=== PATIENT | male | born 1975 | race Hispanic/Latino ===

== ENCOUNTER 2019-04-04 22:07 | Inpatient (IN) | payer OTHER ==
[~2019-04-04] VITALS: Ht 167.6 cm; Wt 116.5 kg
[~2019-04-04 22:07] MED LIST: ETOMIDATE 2 MG/ML 10 ML VIAL IVP ONE; ROCURONIUM BROMIDE 10MG/1ML 5ML VL IV ONE; SUCCINYLCHOLINE CHLORIDE 20 MG/ML 10 ML VIAL IVP ONE
[2019-04-04] MEDS ORDERED: SODIUM CHLORIDE 0.9% 1000ML 1,000 ML IV ONE ×3 (22:52→23:32)
[2019-04-04] MEDS ORDERED: ONDANSETRON HCL 4 MG/2 ML VIAL ONE (22:52)
[2019-04-04 22:59] LABS: BASOPHILS % (AUTO) 0.3 % (0.0-5.0); EOSINOPHILS % (AUTO) 0.1 % (0.0-8.0); HEMATOCRIT 42.3 % (42-54); LYMPHOCYTES % (AUTO) 2.9 % (21.0-51.0); MEAN CORPUSCULAR HEMOGLOBIN 35.3 pg (27.0-33.0); MEAN CORPUSCULAR HGB CONC 33.1 g/dL (32.0-36.0); MEAN CORPUSCULAR VOLUME 106.5 fL (79-99); MONOCYTES % (AUTO) 7.7 % (3.0-13.0); NEUTROPHILS % (AUTO) 85.6 % (40.0-77.0); NUCLEATED RED BLOOD CELLS 0.1 % (0.0-0.19); PLATELET COUNT (AUTO) 104 K/uL (130-400); RED BLOOD CELL COUNT(AUTO) 3.97 MIL/uL (4.50-6.20); RED CELL DISTRIBUTION WIDTH 15.5 % (11.0-15.5); WHITE BLOOD COUNT (AUTO) 22.1 K/uL (4.8-10.8)
[2019-04-04] MEDS ORDERED: ACETAMINOPHEN EXTRA STRENGTH 500 MG TABLET ONE (22:59)
[2019-04-04 23:11] LABS: INR 2.07 (0.85-1.15); PARTIAL THROMBOPLASTIN TIME 39.2 SEC (26.3-35.5); PROTHROMBIN TIME 21.1 SEC (9.6-11.6)
[2019-04-04 23:12] LABS: CREATININE 1.1 mg/dL (0.5-1.5); POTASSIUM 3.7 mmol/L (3.5-5.1)
[2019-04-04 23:17] LABS: ALBUMIN 1.7 g/dL (3.5-5.0); BILIRUBIN,TOTAL 6.6 mg/dL (0.2-1.0); TOTAL PROTEIN, SERUM 8.5 g/dL (6.0-8.3)
[2019-04-04] MEDS ORDERED: THIAMINE HCL 100 MG/ML 2ML VIAL ONE (23:52)
[2019-04-04] MEDS ORDERED: CEFTRIAXONE SODIUM 1 GM ONE (23:52)
[2019-04-04] MEDS ORDERED: AZITHROMYCIN 250 MG TABLET PO ONE (23:52)
[2019-04-04] MEDS ORDERED: IPRATROPIUM/ALBUTEROL SULFATE 3 ML SOLUTION IH ONE (23:53)
[2019-04-04] MEDS ORDERED: SODIUM CHLORIDE 0.9% 100 ML IV ONE (23:53)
[2019-04-04] MEDS ORDERED: PHYTONADIONE 10 MG/1 ML AMP ONE (23:53)
[2019-04-05 01:58] LABS: APPEARANCE,URINE Cloudy (CLEAR); BILIRUBIN,URINE Large (NEGATIVE); GLUCOSE, URINE (UA) TRACE mg/dL (NEGATIVE); KETONES,URINE Negative (NEGATIVE); LEUKOCYTE ESTERASE ,URINE Small (NEGATIVE); NITRATE,URINE Positive (NEGATIVE); OCCULT BLOOD,URINE Negative (NEGATIVE); PROTEIN,URINE POS 2+ mg/dL (NEGATIVE)
[2019-04-05 02:06] LABS: AMPHET/METH SCREEN,URINE NEGATIVE (NEGATIVE); BARBITURATE SCREEN, URINE NEGATIVE (NEGATIVE); BENZODIAZEPINES SCREEN,URINE POSITIVE (NEGATIVE); CANNABINOID SCREEN,URINE POSITIVE (NEGATIVE); COCAINE SCREEN,URINE POSITIVE (NEGATIVE); OPIATE SCREEN,URINE NEGATIVE (NEGATIVE); PHENCYCLIDINE SCREEN,URINE NEGATIVE (NEGATIVE)
[2019-04-05 02:14] LABS: COLOR,URINE AMBER (YELLOW)
[2019-04-05 02:17] LABS: BACTERIA,URINE None Seen /HPF (None Seen); MUCUS,URINE Rare LPF (None Seen); RBC,URINE 0-1 /HPF (0-1); SQUAMOUS EPITHELIAL CELL,UR Few /HPF (0-2); WBC,URINE 0-1 /HPF (0-1)
[2019-04-05 02:19] LABS: COARSE GRANULAR CASTS,URINE 0-2 /LPF (None Seen)
[2019-04-05 02:58] LABS: MAGNESIUM 1.9 mg/dL (1.80-2.40)
[2019-04-05] MEDS ORDERED: NITROGLYCERIN 0.4 MG SL TAB SL PRN (03:30)
[2019-04-05] MEDS ORDERED: ACETAMINOPHEN 325 MG TAB PO PRN (03:30)
[2019-04-05] MEDS: ZOSYN 3.375GM+NS 50ML 50 ML IV SCH ×2 (05:00→13:00)
[2019-04-05] MEDS ORDERED: SODIUM CHLORIDE 0.9% 1000ML 1,000 ML IV ONE (05:03)
[2019-04-05] MEDS ORDERED: ZOSYN 3.375GM+NS 50ML 50 ML IV ONE ×3 (05:03→21:04)
[2019-04-05 06:10] LABS: HEMATOCRIT 38.7 % (42-54); MEAN CORPUSCULAR HEMOGLOBIN 35.7 pg (27.0-33.0); MEAN CORPUSCULAR HGB CONC 33.6 g/dL (32.0-36.0); MEAN CORPUSCULAR VOLUME 106.3 fL (79-99); NUCLEATED RED BLOOD CELLS 0.1 % (0.0-0.19); PLATELET COUNT (AUTO) 87 K/uL (130-400); RED BLOOD CELL COUNT(AUTO) 3.64 MIL/uL (4.50-6.20); RED CELL DISTRIBUTION WIDTH 15.8 % (11.0-15.5); WHITE BLOOD COUNT (AUTO) 20.9 K/uL (4.8-10.8)
[2019-04-05 06:36] LABS: ALBUMIN 1.5 g/dL (3.5-5.0); CREATININE 0.9 mg/dL (0.5-1.5); MAGNESIUM 1.4 mg/dL (1.80-2.40); POTASSIUM 4.1 mmol/L (3.5-5.1); TOTAL PROTEIN, SERUM 7.5 g/dL (6.0-8.3)
[2019-04-05] MEDS ORDERED: IPRATROPIUM/ALBUTEROL SULFATE 3 ML SOLUTION IH ONE ×3 (06:42→13:35)
[2019-04-05 06:43] LABS: INR 2.17 (0.85-1.15); PARTIAL THROMBOPLASTIN TIME 42.5 SEC (26.3-35.5); PROTHROMBIN TIME 22.1 SEC (9.6-11.6)
[2019-04-05] MEDS: IPRATROPIUM/ALBUTEROL SULFATE 3 ML SOLUTION IH SCH ×5 (06:47→22:28)
[2019-04-05 08:10] LABS: BAND NEUTROPHILS % (MANUAL) 1 % (0-2); LYMPHOCYTES % (MANUAL) 1 % (22-44); MAN.DIFF COMMENT-IMPRESSION MANUAL DIFFERENTIAL; MONOCYTES % (MANUAL) 5 % (2-9); SEGMENTED NEUTROPHILS % 93 % (40-70)
[2019-04-05 08:11] LABS: PLATELET MORPHOLOGY COMMENT DECREASED
[2019-04-05] MEDS: FAMOTIDINE 20MG TAB 20 MG TAB PO SCH (09:00)
[2019-04-05] MEDS ORDERED: MAGNESIUM 2GM PREMIX 50ML 50 ML IV SCH (09:15)
[2019-04-05] MEDS ORDERED: CALCIUM GLUCONATE 1 GM in SODIUM CHLORIDE 0.9% 100 ML IV SCH (09:15)
[2019-04-05] MEDS ORDERED: ONDANSETRON HCL 4 MG/2 ML VIAL ONE ×2 (10:00→22:13)
[2019-04-05] MEDS ORDERED: ACETAMINOPHEN 325 MG TAB ONE ×3 (10:19→21:04)
[2019-04-05] MEDS ORDERED: MAGNESIUM 2GM PREMIX 50ML 50 ML IV ONE (10:40)
[2019-04-05] MEDS ORDERED: CALCIUM GLUCONATE 1 GM/10 ML VIAL IV ONE ×2 (10:41→10:45)
[2019-04-05] MEDS ORDERED: SODIUM CHLORIDE 0.9% 100 ML IV ONE (10:41)
--- NOTE | 2019-04-05 12:22 | NUR ---
CHART REVIEWED, A[facility] GENERATED
[2019-04-05 12:30] VITALS: BP 152/84
[2019-04-05] MEDS ORDERED: METOPROLOL TARTRATE 25 MG TAB ONE (16:32)
--- NOTE | 2019-04-05 17:00 | NUR ---
INITIAL MET W PT AND VITO ABURTO , WHOM PATIENT LIVES WITH AND WILL PROVIDE TRANSPORT PT IS INDP,, NO DME, NO HH, NO PROV, CURRENTLY UNEMPLOYED, NO INSURANCE, [employer] PENDING. DCP HOME NOTE:Ronald O2 IN ER, NO O2 AT HOME, ADMIT FOR SOBOE, CHAPARROUEMONIA Addendum: 04/06/19 at 1305 by PENELOPE SAMSON RN CM Amended: Links added.
[2019-04-05] MEDS ORDERED: GUAIFENESIN-DM 200/20 MG 10 ML ONE (22:13)
[2019-04-06] MEDS: IPRATROPIUM/ALBUTEROL SULFATE 3 ML SOLUTION IH SCH ×6 (01:56→21:39)
[2019-04-06] MEDS ORDERED: METOPROLOL TARTRATE 25 MG TAB ONE (03:04)
[2019-04-06] MEDS ORDERED: AZITHROMYCIN 500MG+NS 250ML 250 ML IV ONE (03:07)
[2019-04-06] MEDS: AZITHROMYCIN 500MG+NS 250ML 250 ML IV SCH (03:30)
[2019-04-06] MEDS ORDERED: GUAIFENESIN-DM 200/20 MG 10 ML ONE (04:01)
[2019-04-06] MEDS ORDERED: ONDANSETRON HCL 4 MG/2 ML VIAL ONE (04:01)
[2019-04-06 06:10] LABS: HEPATITIS A ANTIBODY IGM Negative (Negative); HEPATITIS B CORE IGM Negative (Negative); HEPATITIS Bs ANTIGEN SCREEN P Negative (Negative)
[2019-04-06] MEDS ORDERED: IPRATROPIUM/ALBUTEROL SULFATE 3 ML SOLUTION IH ONE ×2 (06:29→09:53)
[2019-04-06] MEDS ORDERED: ZOSYN 3.375GM+NS 50ML 50 ML IV ONE (06:58)
[2019-04-06 09:01] LABS: ABG BASE EXCESS -3.6 mmol/L (-2.0-3.0); ABG HCO3 20.6 mmol/L (21.0-28.0); ABG PCO2 35 mmHg (35-48)
[2019-04-06] MEDS ORDERED: MAGNESIUM 2GM PREMIX 50ML 50 ML IV ONE (11:53)
[2019-04-06 13:00] VITALS: BP 147/82
--- NOTE | 2019-04-06 13:00 | NUR ---
ER PT. ADMITTED TO ROOM 318 WITH DX. PNEUMONIA, UTI, N/V. PER PT. AND ER NURSE HAS BEEN IN ER FOR 3 DAYS. NO C/O AT THIS TIME. PENDING A HIDA SCAN AND IS NPO. 20G SALINE LOCK IN PLACE TO LT. HAND. ON 02 AT 3 LITERS AND SATS AT 90%.
[2019-04-06 16:00] VITALS: BP 144/72
--- NOTE | 2019-04-06 16:00 | NUR ---
WAS ALICIA. FOR HIDA SCAN BUT DID NOT TOLERATE IT, RETURNED TO ROOM
[2019-04-06 20:16] VITALS: BP 143/75
[2019-04-06] MEDS: FAMOTIDINE 20MG TAB 20 MG TAB PO SCH ×2 (21:00→22:01)
[2019-04-06] MEDS ORDERED: LORAZEPAM 2 MG/ML 1 ML VIAL IVP PRN ×2 (21:45)
[2019-04-06] MEDS ORDERED: PHARMACY COMMUNICATION MISC PRN (21:45)
[2019-04-06] MEDS ORDERED: GUAIFENESIN/DEXTROMETHORPHAN 1 EACH TAB.SR.12H PO ONE (21:49)
[2019-04-06] MEDS: ZOSYN 3.375GM+NS 50ML 50 ML IV SCH (22:01)
[2019-04-06] MEDS: SODIUM CHLORIDE 0.9% 1000ML 1,000 ML IV SCH (22:02)
[2019-04-07] VITALS (7 sets, daily range): BP systolic 105–156; BP diastolic 61–87
[2019-04-07] MEDS: IPRATROPIUM/ALBUTEROL SULFATE 3 ML SOLUTION IH SCH ×6 (01:39→21:29)
[2019-04-07] MEDS: AZITHROMYCIN 500MG+NS 250ML 250 ML IV SCH ×2 (02:25→03:30)
[2019-04-07] MEDS: CHLORDIAZEPOXIDE HCL 25 MG CAP PO PRN ×3 (02:25→23:35)
[2019-04-07 02:47] LABS: ABG BASE EXCESS 0.1 mmol/L (-2.0-3.0); ABG HCO3 26.9 mmol/L (21.0-28.0); ABG OXYGEN SATURATION 88.8 % (95.0-99.0); ABG PCO2 52 mmHg (35-48)
[2019-04-07] MEDS: ZOSYN 3.375GM+NS 50ML 50 ML IV SCH ×4 (04:29→21:01)
[2019-04-07] MEDS: ONDANSETRON HCL 4 MG/2 ML VIAL IV PRN (04:29)
[2019-04-07] MEDS: SODIUM CHLORIDE 0.9% 1000ML 1,000 ML IV SCH (05:24)
[2019-04-07 06:03] LABS: EOSINOPHILS % (AUTO) 0.4 % (0.0-8.0); HEMATOCRIT 39.3 % (42-54); LYMPHOCYTES % (AUTO) 5.5 % (21.0-51.0); MEAN CORPUSCULAR HEMOGLOBIN 36.3 pg (27.0-33.0); MEAN CORPUSCULAR HGB CONC 33.6 g/dL (32.0-36.0); MONOCYTES % (AUTO) 9.9 % (3.0-13.0); NUCLEATED RED BLOOD CELLS 0.7 % (0.0-0.19); PLATELET COUNT (AUTO) 156 K/uL (130-400); RED BLOOD CELL COUNT(AUTO) 3.64 MIL/uL (4.50-6.20); RED CELL DISTRIBUTION WIDTH 15.6 % (11.0-15.5); WHITE BLOOD COUNT (AUTO) 21.5 K/uL (4.8-10.8)
[2019-04-07 06:15] LABS: INR 1.8 (0.85-1.15); PARTIAL THROMBOPLASTIN TIME 35.6 SEC (26.3-35.5); PROTHROMBIN TIME 18.5 SEC (9.6-11.6)
[2019-04-07 06:27] LABS: CREATININE 0.9 mg/dL (0.5-1.5); POTASSIUM 4.4 mmol/L (3.5-5.1)
[2019-04-07 06:34] LABS: ALBUMIN 1.4 g/dL (3.5-5.0); BILIRUBIN,TOTAL 8.5 mg/dL (0.2-1.0); TOTAL PROTEIN, SERUM 7.4 g/dL (6.0-8.3)
[2019-04-07] MEDS: GUAIFENESIN 600 MG TABLET.ER PO SCH ×2 (08:37→21:01)
[2019-04-07] MEDS: THIAMINE HCL 100 MG/ML 2ML VIAL IM SCH (08:38)
[2019-04-07] MEDS: FOLIC ACID 1 MG TABLET PO SCH (08:38)
[2019-04-07] MEDS: MULTIVITAMIN TABLET PO SCH (08:38)
--- NOTE | 2019-04-07 08:39 | NUR ---
PATIENT UPDATE Pt anxious the whole night, had problems trying to keep the ventimask and then eventually bipap mask on, yanks the mask off just whenever he feels like it with O2 sat going down to as low as 79%. Known alcoholic and smoker, noted mod amt of tremors hillary in the talha upper extremity ,possible withdrawal symptoms. Sheila Evans PARADI OPERATOR called several times during the night, placed on CIWA protocol, ciwa score of 21, unable to give ativan considering pt's resp status, hyperventilating in the 30's short shallow resp with o2 sat bet 89 to 90% with the ventimask at 50%. Had problems providing the right amount of oxygen because pt tends to take it off and his O2 sat goes down quickly to as low as 65%. Not coughing a lot of phlegm, expectorant given in addition to the duonebs q 4 hrs. Went ahead and gave the pt 50mg of Librium which somehow calmed him down and help him keep the bipap mask on for 3 hrs. ABG done and CO2 was 53 which prompted the need for the bipap mask. Unable to follow the settings prescribed by the PARADI OPERATOR, pt was complaining saying it's too much so it was adjusted by the RT accordingly to 10/5 at 50% with a back up rate of 12. [facility] made aware of the possibility that the pt may need to transfer to the ICU. New iv site started, suction set up ready. Patient monitored very closely overnight. Unable to do the ordered CXR 2 views, pt too short of breath on the bipap to go down, order changed to CXR 1 view instead. Report given to Kit VENTURA who will assume care of pt. Pt still very septic with the lactic acid at 3.3 this am and the WBC's in the 20+. Alert and oriented x 3 but unable to follow safety instructions despite the mother giving instructions at the bedside, will continue to monitor closely as needed.
[2019-04-07] MEDS: FAMOTIDINE 20MG TAB 20 MG TAB PO SCH ×2 (08:44→21:01)
[2019-04-07] MEDS ORDERED: FUROSEMIDE 10 MG/ML 4ML VIAL ONE (09:12)
[2019-04-07] MEDS ORDERED: VANCOMYCIN PROTOCOL PER PHARMACY IV SCH (09:15)
[2019-04-07] MEDS: FUROSEMIDE 10 MG/ML 4ML VIAL IV SCH ×2 (09:15→17:48)
--- NOTE | 2019-04-07 09:23 | NUR ---
REVIEWED ALL LABS WITH DR. MCNEAL AT BEDSIDE STATES FOR NOW GIVE LASIX AND ANTIBIOTICS AND TRANSFER PATIENT SHELBY.
--- NOTE | 2019-04-07 09:23 | NUR ---
DR. MARIANO AWARE OF PATIENT;S CONDITION,STATUS STATES TRANSFER TO PCU AND ORDERS RECEIVED AND ENTERED. MYLENE GARCIA AWARE OF ORDER TO TRANSFER STATES THERE IS NO BEDS, TAKE CARE OF THE PATIENT AND DO WHAT YOU HAVE TO DO FOR NOW. WILL CONTINE TO MONITOR O2 SATS, BREATHING AND CARDIAC STATUS. IN THE MEANTIME PATIENT IS AAOX3. TACHYPNEIC AND TACHYCARDIC. SATS 77% ON ROOM ELISABET AND 90 ON VENTI AT 50%. LASIX GIVEN. PATIENT SHORT OF BREATH WITH CRACKLES TO AP & L.
[2019-04-07] MEDS ORDERED: COMPOUND IV REFRIGERATED 1 EACH IVSOLN MISC PRN (09:30)
[2019-04-07 09:55] LABS: ABG BASE EXCESS 0.6 mmol/L (-2.0-3.0); ABG HCO3 27.8 mmol/L (21.0-28.0); ABG OXYGEN SATURATION 86.6 % (95.0-99.0); ABG PCO2 55 mmHg (35-48)
--- NOTE | 2019-04-07 10:05 | NUR ---
CHARGE NURSE AND KEN AWARE OF NO PCU ROOMS PER MYLENE MURRIETA SUP, NO ROOMS MONITOR PATIENT. ATTEMPTING TO GET ROOM AVAILABLE.
--- NOTE | 2019-04-07 10:20 | NUR ---
PATIENT RESTLESS AND NONCOMPLIANT REMOVING BIPAP MASK DESATING IN 79-80, ATTEMPTING TO APPLY VENTI MASK REFUSES BUT THEN WEARS IT AFTER SEVERE SHORTNESS OF BREATH. VENTI ON SATING 90-93% AT FI02 AT 50%. DR. MARIANO AWARE.
[2019-04-07] MEDS: VANCOMYCIN 1.5 GM in SODIUM CHLORIDE 0.9% 250 ML IV SCH (11:03)
--- NOTE | 2019-04-07 12:38 | NUR ---
PT IN BED, RESTLESS REMOVING VENTI MASK. STATES HE IS CLAUSTROPHOBIC, PROVIDED REASSURANCE STATES OKAY WILL USED IF FOR A COUPLE OF MINUTES. WILL JACKELYN. TO MONITOR PATIENT COMPLIANCE.
--- NOTE | 2019-04-07 13:35 | NUR ---
PER DR. PUENTES TRANSFER PATIENT NOW TO PCU NO ROOM AVAILABLE, NOTIFIED CHARGE NURSE BENJY, PER LIT CHAKRABORTY; NO ROOMS YET TAKE CARE OF PATIENT.
--- NOTE | 2019-04-07 14:20 | NUR ---
PT ON VENTI MASK AT 50%, AAOX3 SOB, SATING 94%, DENIES ANY DISCOMFORT AT THIS TIME OTHER THAN SOB. PER MYLENE NO ROOMS YET. CHARGE NURSE AWARE WELL AND DIRECTOR
--- NOTE | 2019-04-07 15:30 | NUR ---
REPORT GIVEN TO NURSE JILLIAN PATIENT TRANSFERRED TO 2ND FLOOR, ON VENTI MASK AT 50% SATING 92%. SHORT OF BREATH. IN BED IN HIGH FOWLERS. IV INTACT. AAOX3. PARENTS AT BEDSIDE.
--- NOTE | 2019-04-07 15:45 | NUR ---
Transfer Pt recieved via bed. pt sat 87% placed on 50% venti mask. Pt sat increased ot 96. Pt has labored breathing. but no complaints.
--- NOTE | 2019-04-07 17:57 | NUR ---
Sleeping Pt in bed resting. Sat 93% on bipap. Pt in no sign of distress. Family at bedside
[2019-04-07] MEDS: METHYLPREDNISOLONE SOD SUCC 40MG/ML 1ML IVP SCH ×2 (18:35→23:35)
[2019-04-07] MEDS: OSELTAMIVIR PHOSPHATE 75 MG CAP PO SCH (21:01)
--- NOTE | 2019-04-07 21:16 | NUR ---
HOSPITALIST PAGED FOR AMMONIA LEVEL am ammonia level of 37 increased from 11 from day prior patient in bed asleep on continuous bipap oxygen sat 96% he is excessively sleep but arousable to sternal rub and falls back to sleep awaiting call back
--- NOTE | 2019-04-07 21:25 | NUR ---
patient is awake and alert now patient was able to wake up and take his medicines.he is asking about his belonging and family members placed patient on venti mask and tolerating well oxygen sat 94-96% assisted patient with urinal at bedside patient mildly sob with exertion but recovers quickly voided 300ml of dark orange urine informed patient to stay in bed and call for assistance pt verbalized understanding informed patient that if he started to struggle with oxygenation that he will need to be placed back onto bipap -patient agreed with plan of care
--- NOTE | 2019-04-07 23:18 | NUR ---
IT COMMUNICATIONS MANAGER WASTE MACHINE OFFBEARER RETURNED PAGE Discussed ammonia level with IT COMMUNICATIONS MANAGER-Evans patient is awake and alert, in no distress continue to monitor overnight and recheck amm in am
[2019-04-08] MEDS: FUROSEMIDE 10 MG/ML 4ML VIAL IV SCH ×3 (00:52→17:13)
[2019-04-08] MEDS: VANCOMYCIN 1.5 GM in SODIUM CHLORIDE 0.9% 250 ML IV SCH ×3 (00:52→23:00)
[2019-04-08] MEDS: IPRATROPIUM/ALBUTEROL SULFATE 3 ML SOLUTION IH SCH ×6 (01:09→22:06)
[2019-04-08 03:04] VITALS: BP 145/69
[2019-04-08] MEDS: AZITHROMYCIN 500MG+NS 250ML 250 ML IV SCH (04:20)
[2019-04-08 04:25] LABS: ABG BASE EXCESS 1.9 mmol/L (-2.0-3.0); ABG HCO3 30.6 mmol/L (21.0-28.0); ABG OXYGEN SATURATION 98.3 % (95.0-99.0); ABG PCO2 66 mmHg (35-48)
[2019-04-08 04:34] LABS: BASOPHILS % (AUTO) 0.8 % (0.0-5.0); EOSINOPHILS % (AUTO) 0.2 % (0.0-8.0); HEMATOCRIT 35.8 % (42-54); LYMPHOCYTES % (AUTO) 4.3 % (21.0-51.0); MEAN CORPUSCULAR HEMOGLOBIN 35.6 pg (27.0-33.0); MEAN CORPUSCULAR HGB CONC 32.4 g/dL (32.0-36.0); MEAN CORPUSCULAR VOLUME 109.8 fL (79-99); MONOCYTES % (AUTO) 5.8 % (3.0-13.0); NEUTROPHILS % (AUTO) 77.5 % (40.0-77.0); NUCLEATED RED BLOOD CELLS 0.4 % (0.0-0.19); PLATELET COUNT (AUTO) 123 K/uL (130-400); RED BLOOD CELL COUNT(AUTO) 3.26 MIL/uL (4.50-6.20); RED CELL DISTRIBUTION WIDTH 15.9 % (11.0-15.5); WHITE BLOOD COUNT (AUTO) 21.6 K/uL (4.8-10.8)
[2019-04-08 04:53] LABS: B-TYPE NATRIURETIC PEPTIDE 72 pg/mL (0-100)
[2019-04-08 05:19] LABS: POTASSIUM 4.6 mmol/L (3.5-5.1)
[2019-04-08 05:34] LABS: ALBUMIN 1.4 g/dL (3.5-5.0)
[2019-04-08] MEDS: METHYLPREDNISOLONE SOD SUCC 40MG/ML 1ML IVP SCH ×4 (05:38→22:30)
[2019-04-08] MEDS: CHLORDIAZEPOXIDE HCL 25 MG CAP PO PRN ×4 (05:38→22:29)
[2019-04-08] MEDS: ZOSYN 3.375GM+NS 50ML 50 ML IV SCH ×3 (05:38→21:05)
[2019-04-08] MEDS: ACETAMINOPHEN 325 MG TAB PO PRN ×2 (05:41→22:29)
[2019-04-08 07:52] VITALS: BP 153/78
[2019-04-08] MEDS: GUAIFENESIN 600 MG TABLET.ER PO SCH ×2 (08:40→21:06)
[2019-04-08] MEDS: MULTIVITAMIN TABLET PO SCH (08:40)
[2019-04-08] MEDS: FOLIC ACID 1 MG TABLET PO SCH (08:40)
[2019-04-08] MEDS: THIAMINE HCL 100 MG/ML 2ML VIAL IM SCH (08:40)
[2019-04-08] MEDS: FAMOTIDINE 20MG TAB 20 MG TAB PO SCH ×2 (08:40→21:06)
[2019-04-08] MEDS: OSELTAMIVIR PHOSPHATE 75 MG CAP PO SCH ×2 (08:41→21:06)
[2019-04-08 11:40] VITALS: BP 134/67
[2019-04-08] MEDS: INSULIN HUMULIN R 100 UNIT/ML 3ML SQ SCH ×2 (16:30→21:00)
[2019-04-08 16:40] VITALS: BP 154/77
[2019-04-08] MEDS ORDERED: GUAIFENESIN-DM 200/20 MG 10 ML PO SCH (17:30)
[2019-04-08] MEDS: GUAIFENESIN-DM 200/20 MG 10 ML PO SCH ×2 (17:32→22:26)
[2019-04-08 19:27] VITALS: BP 152/76
[2019-04-08] MEDS: LACTULOSE 20 GM/30 ML UDCUP PO SCH (21:06)
[2019-04-08 23:06] VITALS: BP 152/79
[2019-04-09] VITALS (44 sets, daily range): BP systolic 89–185; BP diastolic 36–99
[2019-04-09] MEDS: IPRATROPIUM/ALBUTEROL SULFATE 3 ML SOLUTION IH SCH ×6 (01:24→22:15)
[2019-04-09 04:24] LABS: ABG BASE EXCESS 8.1 mmol/L (-2.0-3.0); ABG HCO3 36.4 mmol/L (21.0-28.0); ABG OXYGEN SATURATION 90.3 % (95.0-99.0); ABG PCO2 67 mmHg (35-48)
[2019-04-09] MEDS: FUROSEMIDE 10 MG/ML 4ML VIAL IV SCH ×3 (05:01→16:43)
[2019-04-09] MEDS: ZOSYN 3.375GM+NS 50ML 50 ML IV SCH ×3 (05:11→20:49)
[2019-04-09] MEDS: METHYLPREDNISOLONE SOD SUCC 40MG/ML 1ML IVP SCH ×3 (05:11→16:43)
[2019-04-09] MEDS: AZITHROMYCIN 500MG+NS 250ML 250 ML IV SCH (05:11)
[2019-04-09] MEDS: GUAIFENESIN-DM 200/20 MG 10 ML PO SCH ×3 (05:11→16:29)
[2019-04-09 05:22] LABS: ALBUMIN 1.4 g/dL (3.5-5.0); CREATININE 0.8 mg/dL (0.5-1.5); POTASSIUM 4.2 mmol/L (3.5-5.1); TOTAL PROTEIN, SERUM 7.6 g/dL (6.0-8.3)
[2019-04-09 06:29] LABS: HEMATOCRIT 40.2 % (42-54); MEAN CORPUSCULAR HEMOGLOBIN 36.3 pg (27.0-33.0); MEAN CORPUSCULAR HGB CONC 32.1 g/dL (32.0-36.0); MEAN CORPUSCULAR VOLUME 113.2 fL (79-99); NUCLEATED RED BLOOD CELLS 0.3 % (0.0-0.19); PLATELET COUNT (AUTO) 67 K/uL (130-400); RED BLOOD CELL COUNT(AUTO) 3.55 MIL/uL (4.50-6.20); RED CELL DISTRIBUTION WIDTH 15.9 % (11.0-15.5); WHITE BLOOD COUNT (AUTO) 18.7 K/uL (4.8-10.8)
[2019-04-09 06:33] LABS: BAND NEUTROPHILS % (MANUAL) 5 % (0-2); LYMPHOCYTES % (MANUAL) 2 % (22-44); MONOCYTES % (MANUAL) 3 % (2-9); SEGMENTED NEUTROPHILS % 90 % (40-70)
[2019-04-09 06:34] LABS: MAN.DIFF COMMENT-IMPRESSION MANUAL DIFFERENTIAL
[2019-04-09 06:36] LABS: PLATELET MORPHOLOGY COMMENT MARKED DECREASE
[2019-04-09] MEDS: INSULIN HUMULIN R 100 UNIT/ML 3ML SQ SCH ×4 (07:30→21:00)
[2019-04-09] MEDS: OSELTAMIVIR PHOSPHATE 75 MG CAP PO SCH ×2 (09:00→19:40)
[2019-04-09] MEDS: MULTIVITAMIN TABLET PO SCH (09:00)
[2019-04-09] MEDS: LACTULOSE 20 GM/30 ML UDCUP PO SCH ×2 (09:00→19:36)
[2019-04-09] MEDS: GUAIFENESIN 600 MG TABLET.ER PO SCH ×2 (09:00→19:36)
[2019-04-09] MEDS: FAMOTIDINE 20MG TAB 20 MG TAB PO SCH ×2 (09:00→19:40)
[2019-04-09] MEDS: FOLIC ACID 1 MG TABLET PO SCH (09:00)
[2019-04-09] MEDS: VANCOMYCIN 1.75 GM in SODIUM CHLORIDE 0.9% 250 ML IV SCH ×2 (10:51→21:29)
[2019-04-09] MEDS: THIAMINE HCL 100 MG/ML 2ML VIAL IM SCH (11:07)
[2019-04-09] MEDS ORDERED: METOCLOPRAMIDE 10 MG/2 ML VIAL ONE (12:07)
[2019-04-09] MEDS ORDERED: METOCLOPRAMIDE 10 MG/2 ML VIAL IVP SCH (12:15)
[2019-04-09 14:37] LABS: ABG BASE EXCESS 7.1 mmol/L (-2.0-3.0); ABG OXYGEN SATURATION 92.7 % (95.0-99.0); ABG PCO2 71 mmHg (35-48)
[2019-04-09] MEDS ORDERED: PROPOFOL 1000 MG/100 ML 100 ML IV ONE (15:25)
[2019-04-09] MEDS ORDERED: PROPOFOL 10 MG/ML 20ML VIAL IV ONE (15:37)
[2019-04-09] MEDS ORDERED: ETOMIDATE 2 MG/ML 10 ML VIAL IVP SCH (15:45)
[2019-04-09] MEDS ORDERED: SUCCINYLCHOLINE 200MG/10ML SYR IVP SCH (15:45)
[2019-04-09] MEDS ORDERED: PHARMACY COMMUNICATION MISC SCH ×2 (16:15→20:15)
[2019-04-09] MEDS ORDERED: LACTATED RINGERS 1000ML 500 ML IV SCH (16:15)
[2019-04-09] MEDS: PROPOFOL 1000 MG/100 ML IV PRN ×4 (16:42→22:14)
[2019-04-09 16:52] LABS: ABG BASE EXCESS 3.3 mmol/L (-2.0-3.0); ABG HCO3 31.3 mmol/L (21.0-28.0); ABG OXYGEN SATURATION 89.1 % (95.0-99.0); ABG PCO2 63 mmHg (35-48)
[2019-04-09] MEDS: MIDAZOLAM 50MG-0.9% NS 50ML 50 ML IV PRN (17:02)
[2019-04-09] MEDS: FENTANYL 1000MCG+NS 100ML 100 ML IV PRN (17:22)
[2019-04-09 20:08] LABS: ABG BASE EXCESS 7.6 mmol/L (-2.0-3.0); ABG HCO3 34.9 mmol/L (21.0-28.0); ABG OXYGEN SATURATION 95.9 % (95.0-99.0); ABG PCO2 60 mmHg (35-48)
[2019-04-09] MEDS: DEXTROSE 5 % AND 0.9 % NACL 1,000 ML IV SCH (20:53)
[2019-04-09] MEDS ORDERED: COMPOUND PO MISCELLANEOUS 1 EACH MISC MISC PRN (21:00)
--- NOTE | 2019-04-09 23:00 | NUR ---
2000 Assumed care of patient after report received from Ainsley VENTURA. Call received from Dr Hogue. Reported post intubation ABGs. full report on patient status given. Orders received.
[2019-04-09] MEDS: LEVOFLOXACIN 750 MG/D5W 150 ML 150 ML IV SCH (23:57)
[2019-04-10] VITALS (31 sets, daily range): BP systolic 90–121; BP diastolic 35–52
[2019-04-10] MEDS: OSELTAMIVIR SUSP 15 MG/ML (6 CAPS/29ML) PO SCH ×6 (01:07→21:03)
[2019-04-10] MEDS: PROPOFOL 1000 MG/100 ML IV PRN ×3 (01:08→16:04)
[2019-04-10] MEDS: GUAIFENESIN-DM 200/20 MG 10 ML PO SCH ×5 (01:11→23:30)
[2019-04-10] MEDS: AZITHROMYCIN 500MG+NS 250ML 250 ML IV SCH (02:00)
[2019-04-10] MEDS: IPRATROPIUM/ALBUTEROL SULFATE 3 ML SOLUTION IH SCH ×5 (02:12→21:09)
[2019-04-10 03:48] LABS: BASOPHILS % (AUTO) 0.5 % (0.0-5.0); EOSINOPHILS % (AUTO) 0.2 % (0.0-8.0); HEMATOCRIT 34.2 % (42-54); LYMPHOCYTES % (AUTO) 2.6 % (21.0-51.0); MEAN CORPUSCULAR HEMOGLOBIN 36.6 pg (27.0-33.0); MEAN CORPUSCULAR HGB CONC 32.5 g/dL (32.0-36.0); MEAN CORPUSCULAR VOLUME 112.9 fL (79-99); MONOCYTES % (AUTO) 4.7 % (3.0-13.0); NEUTROPHILS % (AUTO) 85.1 % (40.0-77.0); NUCLEATED RED BLOOD CELLS 0.3 % (0.0-0.19); PLATELET COUNT (AUTO) 72 K/uL (130-400); RED BLOOD CELL COUNT(AUTO) 3.03 MIL/uL (4.50-6.20); RED CELL DISTRIBUTION WIDTH 15.9 % (11.0-15.5); WHITE BLOOD COUNT (AUTO) 21.9 K/uL (4.8-10.8)
[2019-04-10 04:03] LABS: BILIRUBIN,TOTAL 5.9 mg/dL (0.2-1.0); CREATININE 1.8 mg/dL (0.5-1.5); TOTAL PROTEIN, SERUM 6.8 g/dL (6.0-8.3)
[2019-04-10] MEDS: METHYLPREDNISOLONE SOD SUCC 40MG/ML 1ML IVP SCH ×4 (04:32→17:51)
[2019-04-10] MEDS: ZOSYN 3.375GM+NS 50ML 50 ML IV SCH (04:33)
[2019-04-10] MEDS: MIDAZOLAM 50MG-0.9% NS 50ML 50 ML IV PRN ×3 (06:01→16:04)
[2019-04-10] MEDS: INSULIN HUMULIN R 100 UNIT/ML 3ML SQ SCH ×3 (07:23→18:00)
[2019-04-10 08:17] LABS: ABG BASE EXCESS 5.2 mmol/L (-2.0-3.0); ABG HCO3 31.4 mmol/L (21.0-28.0); ABG OXYGEN SATURATION 98.3 % (95.0-99.0); ABG PCO2 52 mmHg (35-48)
[2019-04-10] MEDS: GUAIFENESIN 600 MG TABLET.ER PO SCH (09:00)
[2019-04-10] MEDS ORDERED: ENOXAPARIN SODIUM 40 MG/0.4 ML SYRINGE SQ SCH (09:00)
[2019-04-10] MEDS: PANTOPRAZOLE 40 MG/VIAL IVP SCH (09:00)
[2019-04-10] MEDS: LACTULOSE 20 GM/30 ML UDCUP PO SCH ×2 (09:55→20:42)
[2019-04-10] MEDS: MULTIVITAMIN TABLET PO SCH (09:55)
[2019-04-10] MEDS: FAMOTIDINE 20MG TAB 20 MG TAB PO SCH ×2 (09:56→20:42)
[2019-04-10] MEDS: DEXTROSE 5 % AND 0.9 % NACL 1,000 ML IV SCH (10:16)
[2019-04-10] MEDS: VANCOMYCIN 1.75 GM in SODIUM CHLORIDE 0.9% 250 ML IV SCH ×2 (10:16→22:00)
[2019-04-10] MEDS ORDERED: LACTATED RINGERS 1000ML IV SCH (11:30)
[2019-04-10] MEDS ORDERED: RENAL DOSE IV SCH (11:30)
[2019-04-10] MEDS: CEFEPIME HCL 2 GM VIAL IVP SCH (14:33)
[2019-04-10] MEDS: FENTANYL 1000MCG+NS 100ML 100 ML IV PRN (14:53)
--- NOTE | 2019-04-10 18:50 | NUR ---
Nutrition Intervention: Nutrition screen based on LOS x 6 days. Pt. with Resp. Failure-S/P intubation on [facility] vent support as of 04/09/2019. Pt. NPO. Labs reviewed(Alb 1.0, Ammonia 43, BUN 41, Creat 1.8, GFR 44, T. bili 5.9, AST 102, Na 134, BG 120). LBM: 04/07/2019. SR-15, left buttock blister. Pt. with 2+ edema to BLE. Recommendations: 1) If medically feasible, rec. TF with Suplena@20ml/hr, increasing rate by 5ml every 5 hrs. to goal rate of 55ml/hr. 2) Flush with 90ml free water every 6 hrs. 3) Continue to monitor pt's nutritional status. 4) Consult RD as nutrition concerns arise. Addendum: 04/10/19 at [address] Amended: Links added.
[2019-04-11] VITALS (34 sets, daily range): BP systolic 102–126; BP diastolic 40–56
[2019-04-11] MEDS: LEVOFLOXACIN 750 MG/D5W 150 ML 150 ML IV SCH (00:24)
[2019-04-11] MEDS: METHYLPREDNISOLONE SOD SUCC 40MG/ML 1ML IVP SCH ×5 (00:24→22:35)
[2019-04-11] MEDS: IPRATROPIUM/ALBUTEROL SULFATE 3 ML SOLUTION IH SCH ×6 (01:18→21:22)
[2019-04-11] MEDS: DEXTROSE 5 % AND 0.9 % NACL 1,000 ML IV SCH ×2 (02:44→12:15)
[2019-04-11] MEDS: AZITHROMYCIN 500MG+NS 250ML 250 ML IV SCH (02:44)
[2019-04-11] MEDS: MIDAZOLAM 50MG-0.9% NS 50ML 50 ML IV PRN ×3 (02:44→21:17)
[2019-04-11] MEDS: NOREPINEPHRINE 4MG/NS 250ML 250 ML IV SCH (02:53)
[2019-04-11 03:28] LABS: BASOPHILS % (AUTO) 0.4 % (0.0-5.0); HEMATOCRIT 33.7 % (42-54); LYMPHOCYTES % (AUTO) 2.1 % (21.0-51.0); MEAN CORPUSCULAR HEMOGLOBIN 36.1 pg (27.0-33.0); MEAN CORPUSCULAR HGB CONC 32.6 g/dL (32.0-36.0); MEAN CORPUSCULAR VOLUME 110.5 fL (79-99); MONOCYTES % (AUTO) 5.7 % (3.0-13.0); NUCLEATED RED BLOOD CELLS 0.3 % (0.0-0.19); PLATELET COUNT (AUTO) 77 K/uL (130-400); RED BLOOD CELL COUNT(AUTO) 3.05 MIL/uL (4.50-6.20); RED CELL DISTRIBUTION WIDTH 15.9 % (11.0-15.5); WHITE BLOOD COUNT (AUTO) 24.9 K/uL (4.8-10.8)
[2019-04-11 03:39] LABS: BILIRUBIN,TOTAL 4.8 mg/dL (0.2-1.0); CREATININE 3.8 mg/dL (0.5-1.5); MAGNESIUM 2.4 mg/dL (1.80-2.40); PHOSPHORUS 3.4 mg/dL (2.5-4.9); POTASSIUM 4.2 mmol/L (3.5-5.1); TOTAL PROTEIN, SERUM 6.7 g/dL (6.0-8.3)
[2019-04-11] MEDS: GUAIFENESIN-DM 200/20 MG 10 ML PO SCH ×4 (04:30→22:36)
[2019-04-11] MEDS: INSULIN HUMULIN R 100 UNIT/ML 3ML SQ SCH ×5 (05:15→23:31)
[2019-04-11 08:22] LABS: ABG BASE EXCESS 3.1 mmol/L (-2.0-3.0); ABG HCO3 30.2 mmol/L (21.0-28.0); ABG OXYGEN SATURATION 96.6 % (95.0-99.0); ABG PCO2 56 mmHg (35-48)
[2019-04-11] MEDS: FENTANYL 1000MCG+NS 100ML 100 ML IV PRN (08:33)
[2019-04-11] MEDS: PANTOPRAZOLE 40 MG/VIAL IVP SCH (09:00)
[2019-04-11] MEDS: LACTULOSE 20 GM/30 ML UDCUP PO SCH ×2 (10:15→20:25)
[2019-04-11] MEDS: FAMOTIDINE 20MG TAB 20 MG TAB PO SCH ×2 (10:15→20:25)
[2019-04-11] MEDS: MULTIVITAMIN TABLET PO SCH (10:15)
[2019-04-11] MEDS: OSELTAMIVIR SUSP 15 MG/ML (6 CAPS/29ML) PO SCH ×4 (10:23→20:25)
[2019-04-11] MEDS ORDERED: PHARMACY COMMUNICATION MISC SCH ×2 (11:15→19:45)
[2019-04-11] MEDS: CEFEPIME HCL 2 GM VIAL IVP SCH (12:13)
[2019-04-11] MEDS: LINEZOLID 600 MG/ISO-OSM 300 ML IV SCH ×2 (12:13→22:35)
[2019-04-11] MEDS ORDERED: FUROSEMIDE 10 MG/ML 2ML VIAL IV SCH (13:30)
--- NOTE | 2019-04-11 15:00 | NUR ---
NEXT OF KIN PATIENT'S MOTHER HAS BEEN SICK AT HOME AND UNABLE TO COME TO HOSPITAL. SPOKE TO PATIENT'S EX-STEP DAUGHTER TO INQUIRE ABOUT NEXT OF KIN AND WHO IS AVAILABLE TO MAKE DECISIONS AND SIGN CONSENTS. SHE WAS ABLE TO SPEAK TO PATIENT'S MOTHER AND PATIENT'S MOTHER CALLED HER OTHER SON GARCÍA. GARCÍA CALLED FROM [place], DISCUSSED PATIENT'S CONDITION AND WHO WOULD BE ABLE TO GIVE CONSENT. GARCÍA STATES THAT PATIENT DID NOT ADOPT HIS EX STEP CHILDREN AND HIS SON IS A MINOR. HE ALSO RELAYED THAT HIS MOTHER IS AT HOME SICK WITH THE FLU. I INFORMED GARCÍA THAT IF CONSENT WAS NEEDED FOR ANY PROCEDURES WE WOULD ATTEMPT TO REACH MOTHER FIRST AND THEN HIM IF SHE IS UNAVAILABLE.
--- NOTE | 2019-04-11 16:01 | NUR ---
[facility] CONSULT PATIENT ASSESSED REQUESTED: PATIENT PRESENTS WITH DTI TO SACRUM MEASURING 10cm X 7.5cm X 0; [facility] RECOMMENDATIONS SUBMITTED. Addendum: 04/11/19 at 1603 by NORMA ERICKSON LVN Amended: Links added.
[2019-04-11 19:39] LABS: APPEARANCE,URINE Turbid (CLEAR); BILIRUBIN,URINE Moderate (NEGATIVE); COLOR,URINE Dark Yellow (YELLOW); GLUCOSE, URINE (UA) Negative (NEGATIVE); KETONES,URINE Trace mg/dL (NEGATIVE); LEUKOCYTE ESTERASE ,URINE Small (NEGATIVE); NITRATE,URINE Positive (NEGATIVE); OCCULT BLOOD,URINE Moderate (NEGATIVE); PROTEIN,URINE POS 1+ mg/dL (NEGATIVE)
[2019-04-11 19:42] LABS: CREATININE,URINE RANDOM 338 mg/dL (30-135); SODIUM,URINE RANDOM < 15 mmol/l (40-220)
[2019-04-11 20:21] LABS: BACTERIA,URINE Few /HPF (None Seen); WBC,URINE 0-1 /HPF (0-1)
[2019-04-11 20:22] LABS: SQUAMOUS EPITHELIAL CELL,UR None Seen /HPF (0-2)
[2019-04-11] MEDS: ACETYLCYSTEINE 20% 200MG/ML 4ML VIAL IH SCH (21:22)
[2019-04-11] MEDS: PROPOFOL 1000 MG/100 ML IV PRN (23:36)
[2019-04-12] VITALS (43 sets, daily range): BP systolic 93–129; BP diastolic 36–54
[2019-04-12] MEDS: LEVOFLOXACIN 750 MG/D5W 150 ML 150 ML IV SCH (00:16)
[2019-04-12] MEDS: NOREPINEPHRINE 4MG/NS 250ML 250 ML IV SCH ×2 (00:16→23:22)
[2019-04-12] MEDS: FENTANYL 1000MCG+NS 100ML 100 ML IV PRN ×3 (01:12→18:33)
[2019-04-12] MEDS: IPRATROPIUM/ALBUTEROL SULFATE 3 ML SOLUTION IH SCH ×6 (01:32→22:26)
[2019-04-12] MEDS: ACETYLCYSTEINE 20% 200MG/ML 4ML VIAL IH SCH ×6 (01:32→22:26)
[2019-04-12] MEDS: AZITHROMYCIN 500MG+NS 250ML 250 ML IV SCH (02:17)
[2019-04-12] MEDS: GUAIFENESIN-DM 200/20 MG 10 ML PO SCH ×4 (02:20→23:18)
[2019-04-12] MEDS: METHYLPREDNISOLONE SOD SUCC 40MG/ML 1ML IVP SCH ×4 (03:50→23:18)
[2019-04-12 04:00] LABS: HEMATOCRIT 33.5 % (42-54); MEAN CORPUSCULAR HGB CONC 32.2 g/dL (32.0-36.0); MEAN CORPUSCULAR VOLUME 111.7 fL (79-99); NUCLEATED RED BLOOD CELLS 0.2 % (0.0-0.19); PLATELET COUNT (AUTO) 119 K/uL (130-400); RED CELL DISTRIBUTION WIDTH 16.2 % (11.0-15.5); WHITE BLOOD COUNT (AUTO) 28.2 K/uL (4.8-10.8)
[2019-04-12 04:25] LABS: CREATININE 5.7 mg/dL (0.5-1.5); MAGNESIUM 2.4 mg/dL (1.80-2.40); PHOSPHORUS 6.4 mg/dL (2.5-4.9); POTASSIUM 5.2 mmol/L (3.5-5.1); URIC ACID 8.3 mg/dL (2.6-7.2)
[2019-04-12 04:27] LABS: INR 2.17 (0.85-1.15); PARTIAL THROMBOPLASTIN TIME 37.3 SEC (26.3-35.5); PROTHROMBIN TIME 22.1 SEC (9.6-11.6)
[2019-04-12 04:35] LABS: BAND NEUTROPHILS % (MANUAL) 9 % (0-2); LYMPHOCYTES % (MANUAL) 4 % (22-44); MAN.DIFF COMMENT-IMPRESSION MANUAL DIFFERENTIAL; MONOCYTES % (MANUAL) 8 % (2-9); PLATELET MORPHOLOGY COMMENT ADEQUATE; SEGMENTED NEUTROPHILS % 79 % (40-70)
[2019-04-12] MEDS: MIDAZOLAM 50MG-0.9% NS 50ML 50 ML IV PRN ×2 (05:14→15:31)
[2019-04-12] MEDS: INSULIN HUMULIN R 100 UNIT/ML 3ML SQ SCH ×3 (05:39→17:39)
[2019-04-12] MEDS: LACTULOSE 20 GM/30 ML UDCUP PO SCH ×2 (08:13→23:18)
[2019-04-12] MEDS: PANTOPRAZOLE 40 MG/VIAL IVP SCH (08:13)
[2019-04-12] MEDS: MULTIVITAMIN TABLET PO SCH (08:13)
[2019-04-12] MEDS: THIAMINE HCL 100 MG TABLET PO SCH (08:13)
[2019-04-12] MEDS: OSELTAMIVIR SUSP 15 MG/ML (6 CAPS/29ML) PO SCH ×2 (08:13)
[2019-04-12] MEDS: FOLIC ACID/VITAMIN B COMP W-C 1 MG CAP/TAB PO SCH (08:13)
[2019-04-12] MEDS: FAMOTIDINE 20MG TAB 20 MG TAB PO SCH ×2 (08:13→21:00)
[2019-04-12] MEDS: PROPOFOL 1000 MG/100 ML IV PRN (08:53)
[2019-04-12] MEDS: CEFEPIME HCL 2 GM VIAL IVP SCH (11:47)
[2019-04-12] MEDS: LINEZOLID 600 MG/ISO-OSM 300 ML IV SCH ×2 (12:02→23:18)
[2019-04-12] MEDS ORDERED: SODIUM CHLORIDE 0.9% 1000ML 1,000 ML IV ONE ×2 (12:55→13:00)
[2019-04-12] MEDS ORDERED: FUROSEMIDE 10 MG/ML 4ML VIAL IV SCH (13:00)
[2019-04-12] MEDS ORDERED: LACTATED RINGERS 1000ML IV ONE (13:00)
[2019-04-12] MEDS ORDERED: FUROSEMIDE 100 MG in SODIUM CHLORIDE 0.9% 100 ML IV SCH (13:00)
--- NOTE | 2019-04-12 13:54 | NUR ---
CHART CHECK: Pt IS A 43 Y.O. MALE WITH THE FOLLOWING PROBLEM LIST OF: Hypoxic respiratory failure, Multifocal pneumonia, Severe sepsis., Urinary tract infection, Polysubstance abuse, Current tobacco use AND Acute renal failure. PAST MEDICAL HISTORY SIGNIFICANT FOR HYPERTENSION. Pt CURRENTLY INTUBATED. RECOMMEND SKILLED SPEECH EVALUATION 24 HOURS POST EXTUBATION. Addendum: 04/12/19 at 1357 by BINDU SIERRA, [facility] Amended: Links added.
[2019-04-12] MEDS: ALBUMIN (HUMAN) 5% 250 ML IV SCH ×2 (14:03→23:18)
[2019-04-12] MEDS: OCTREOTIDE ACETATE 100 MCG/ML AMP SQ SCH ×2 (14:05→23:18)
--- NOTE | 2019-04-12 20:37 | NUR ---
At about this time spoke to [facility] Brennon notified him on having to Ambu bag patient twice already for disaturation to low 80's and according to the nurse also in the daytime did the same, he ordered to increase the peep to 15 and monitor. Addendum: 04/12/19 at [address]A [address] Amended: Links added.
--- NOTE | 2019-04-12 21:00 | NUR ---
Call placed to [facility] at 2027. Spoke with Brennon ELENA. Reported episodes of desaturation down to 83. PEEP increased to 15. FiO2 increased to 80.
[2019-04-13] VITALS (58 sets, daily range): BP systolic 71–127; BP diastolic 30–70
[2019-04-13] MEDS: LEVOFLOXACIN 750 MG/D5W 150 ML 150 ML IV SCH ×2 (01:09→23:29)
[2019-04-13] MEDS: PROPOFOL 1000 MG/100 ML IV PRN (02:04)
[2019-04-13] MEDS: IPRATROPIUM/ALBUTEROL SULFATE 3 ML SOLUTION IH SCH ×6 (02:30→22:47)
[2019-04-13] MEDS: ACETYLCYSTEINE 20% 200MG/ML 4ML VIAL IH SCH ×6 (02:31→22:48)
[2019-04-13] MEDS: MIDAZOLAM 50MG-0.9% NS 50ML 50 ML IV PRN ×2 (03:28→19:53)
[2019-04-13] MEDS: AZITHROMYCIN 500MG+NS 250ML 250 ML IV SCH (03:28)
[2019-04-13 04:23] LABS: ABG BASE EXCESS -16.1 mmol/L (-2.0-3.0); ABG HCO3 15.4 mmol/L (21.0-28.0); ABG OXYGEN SATURATION 91.7 % (95.0-99.0); ABG PCO2 60 mmHg (35-48)
[2019-04-13 04:45] LABS: BASOPHILS % (AUTO) 0.3 % (0.0-5.0); HEMATOCRIT 36.1 % (42-54); LYMPHOCYTES % (AUTO) 1.5 % (21.0-51.0); MEAN CORPUSCULAR HEMOGLOBIN 36.4 pg (27.0-33.0); MEAN CORPUSCULAR HGB CONC 30.5 g/dL (32.0-36.0); MEAN CORPUSCULAR VOLUME 119.5 fL (79-99); MONOCYTES % (AUTO) 8.5 % (3.0-13.0); NEUTROPHILS % (AUTO) 80.9 % (40.0-77.0); NUCLEATED RED BLOOD CELLS 0.4 % (0.0-0.19); PLATELET COUNT (AUTO) 120 K/uL (130-400); RED BLOOD CELL COUNT(AUTO) 3.02 MIL/uL (4.50-6.20); RED CELL DISTRIBUTION WIDTH 16.4 % (11.0-15.5)
[2019-04-13] MEDS: NOREPINEPHRINE 4MG/NS 250ML 250 ML IV SCH (04:45)
[2019-04-13] MEDS: GUAIFENESIN-DM 200/20 MG 10 ML PO SCH ×4 (04:59→22:03)
[2019-04-13] MEDS: ALBUMIN (HUMAN) 5% 250 ML IV SCH ×3 (04:59→21:38)
[2019-04-13] MEDS: METHYLPREDNISOLONE SOD SUCC 40MG/ML 1ML IVP SCH ×4 (04:59→22:59)
[2019-04-13 05:01] LABS: WHITE BLOOD COUNT (AUTO) 30.4 K/uL (4.8-10.8)
[2019-04-13] MEDS: OCTREOTIDE ACETATE 100 MCG/ML AMP SQ SCH ×3 (05:20→22:03)
[2019-04-13] MEDS: FENTANYL 1000MCG+NS 100ML 100 ML IV PRN ×2 (05:20→18:02)
[2019-04-13 05:47] LABS: ALBUMIN 1.5 g/dL (3.5-5.0); CREATININE 7.7 mg/dL (0.5-1.5); MAGNESIUM 2.5 mg/dL (1.80-2.40); PHOSPHORUS 11.4 mg/dL (2.5-4.9); THYROID STIMULATING HORMONE 0.08 uIU/mL (0.36-3.74)
[2019-04-13 05:56] LABS: POTASSIUM 6.8 mmol/L (3.5-5.1)
[2019-04-13] MEDS: INSULIN HUMULIN R 100 UNIT/ML 3ML SQ SCH ×5 (06:00→23:22)
[2019-04-13 06:22] LABS: BAND NEUTROPHILS % (MANUAL) 1 % (0-2); LYMPHOCYTES % (MANUAL) 4 % (22-44); MAN.DIFF COMMENT-IMPRESSION MANUAL DIFFERENTIAL; METAMYELOCYTES % 1 % (0-0); MONOCYTES % (MANUAL) 6 % (2-9); SEGMENTED NEUTROPHILS % 88 % (40-70)
--- NOTE | 2019-04-13 07:19 | NUR ---
[address] [facility] to report ABGs, labs. Awaiting call back. [address] [facility]. Awaiting call back.
[2019-04-13] MEDS ORDERED: SODIUM BICARB 50MEQ 50ML VIAL IV SCH (07:26)
--- NOTE | 2019-04-13 07:30 | NUR ---
RECEIVED ORDER FOR ABG RESULTS 4 AMPS BICARB GIVEN AND BICARB DRIP STARTED, TITRATING PROPOFOL DRIP TO OFF. PER DR CLARK
[2019-04-13] MEDS: SODIUM BICARB 8.4% 50ML SYRING 150 MEQ in DEXTROSE 5%-WATER 1,000 ML IV SCH ×3 (08:02→22:47)
[2019-04-13 08:28] LABS: ABG BASE EXCESS -11.3 mmol/L (-2.0-3.0); ABG HCO3 19.7 mmol/L (21.0-28.0); ABG OXYGEN SATURATION 92.4 % (95.0-99.0); ABG PCO2 67 mmHg (35-48)
[2019-04-13] MEDS ORDERED: ALBUTEROL SULFATE 0.083% 2.5 MG/3 ML INH IH SCH (08:45)
[2019-04-13] MEDS ORDERED: INSULIN HUMULIN R 100 UNIT/ML 3ML IV SCH (08:45)
[2019-04-13] MEDS ORDERED: DEXTROSE 50%-WATER 25 GM/50 ML VIAL IV SCH ×2 (08:45→09:30)
[2019-04-13] MEDS ORDERED: SODIUM CHLORIDE 0.9% 500ML 500 ML IV SCH (08:45)
[2019-04-13] MEDS ORDERED: PHYTONADIONE 10 MG/1 ML AMP IV SCH (08:45)
[2019-04-13] MEDS ORDERED: SODIUM POLYSTYRENE SULFONATE 15 GM/60 ML ML PO SCH (08:45)
[2019-04-13] MEDS ORDERED: ALBUTEROL SULFATE 0.083% 2.5 MG/3 ML INH IH ONE (08:57)
[2019-04-13] MEDS: FAMOTIDINE 20MG TAB 20 MG TAB PO SCH (09:00)
[2019-04-13] MEDS: MULTIVITAMIN TABLET PO SCH (09:04)
[2019-04-13] MEDS: LACTULOSE 20 GM/30 ML UDCUP PO SCH ×2 (09:04→20:08)
[2019-04-13] MEDS: PANTOPRAZOLE 40 MG/VIAL IVP SCH (09:04)
[2019-04-13] MEDS: THIAMINE HCL 100 MG TABLET PO SCH (09:04)
[2019-04-13] MEDS: FOLIC ACID/VITAMIN B COMP W-C 1 MG CAP/TAB PO SCH (09:04)
--- NOTE | 2019-04-13 11:33 | NUR ---
SPOKE TO CRISELDA, MOTHER FOR CONSENT, SHE WANTS GARCÍA(PTS BROTHER) TO DECIDE ON CARE OBTAINED PHONE CONSENT FOR FFP AND DIALYSIS CATHETER PLACEMENT WITH PLACEMENT OF CATHETER
--- NOTE | 2019-04-13 12:47 | NUR ---
DIALYSIS CATHETER PLCED
[2019-04-13] MEDS ORDERED: SODIUM BICARB 50MEQ 50ML VIAL IV STA (12:55)
[2019-04-13] MEDS ORDERED: SODIUM BICARB 50MEQ 50ML VIAL ONE ×3 (13:13→17:49)
--- NOTE | 2019-04-13 13:29 | NUR ---
O2 SAT LOW, DR CLARK CALLED, STARTED TO USE AMBU BAG TO BAG PATIENT, RT AT BEDSIDE. GAVE 3AMP BICARB PER DR CLARK AND PLACED NG TUBE TO LIWS DUE TO NO BM AFTER KAYEXELATE AND LACTULOSE GIVEN
[2019-04-13] MEDS: METOCLOPRAMIDE 10 MG/2 ML VIAL IVP SCH ×2 (14:28→22:03)
[2019-04-13] MEDS: LINEZOLID 600 MG/ISO-OSM 300 ML IV SCH ×2 (14:29→22:03)
[2019-04-13] MEDS ORDERED: SODIUM CHLORIDE IV SCH ×2 (14:30)
[2019-04-13] MEDS ORDERED: NOREPINEPHRINE IV SCH ×2 (14:30)
[2019-04-13 14:32] LABS: ABG HCO3 22.2 mmol/L (21.0-28.0); ABG OXYGEN SATURATION 85.9 % (95.0-99.0); ABG PCO2 54 mmHg (35-48)
[2019-04-13] MEDS: ONDANSETRON HCL 4 MG/2 ML VIAL IV PRN (14:32)
[2019-04-13 14:46] LABS: HEMATOCRIT 30.4 % (42-54)
[2019-04-13 15:06] LABS: HEMOGLOBIN A1C 4.5 % (4.0-6.0)
[2019-04-13] MEDS: CEFEPIME HCL 2 GM VIAL IVP SCH (15:06)
[2019-04-13 15:07] LABS: ALBUMIN 1.7 g/dL (3.5-5.0); CREATININE 7.7 mg/dL (0.5-1.5); GLOMERULAR FILTR. RATE CALC 8 mL/min (>60); HDL CHOLESTEROL 49 mg/dL (29-71); LDL DIRECT 34 mg/dL (0-99); TRIGLYCERIDES 107 mg/dL (30-200)
[2019-04-13 15:10] LABS: UREA NITROGEN, BLOOD 101 mg/dL (7-18)
[2019-04-13 15:22] LABS: CHOLESTEROL < 50 mg/dL (<200)
--- NOTE | 2019-04-13 15:41 | NUR ---
RD FOLLOW UP Tube feeding held this AM secondary to needed medication, as per RN. Pt pending Dialysis. Tube feeding never surpassed 35mls/hr, as per RN. Recommend tube feeding goal to be decreased to 45mls/hr (1939kcal/49gm Protein). Noted, Pt LBM 04/07/19. Pt monitored labs: WBC 30.49, RBC 3.02, Na 133, K 6.8, Cl 96, CO2 16, BUN 106, Cr 7.7, GFR 8, BG 163, Ca 7.2, P 11.4, Mg 2.50, Alb 1.5. RD to follow up and to continue to monitor electrolytes, renal labs, BM, residuals. Addendum: 04/13/19 at [address] Amended: Links added.
--- NOTE | 2019-04-13 16:00 | NUR ---
PER DIALYSIS NURSE, PT DID NOT TOLERATE HIS DIALYSIS. INCREASED LEVOPHED DRIP TO COMPENSATE.
[2019-04-13 16:38] LABS: PROTHROMBIN TIME 37.1 SEC (9.6-11.6)
[2019-04-13 16:39] LABS: INR 3.72 (0.85-1.15)
[2019-04-13] MEDS ORDERED: CISATRACURIUM BESYLATE 100 MG in SODIUM CHLORIDE 0.9% 100 ML IV SCH (17:45)
[2019-04-13 18:09] LABS: ABG BASE EXCESS 1.5 mmol/L (-2.0-3.0); ABG HCO3 27.7 mmol/L (21.0-28.0); ABG OXYGEN SATURATION 89.4 % (95.0-99.0); ABG PCO2 51 mmHg (35-48)
[2019-04-13] MEDS ORDERED: SODIUM BICARB 8.4% 50ML SYRINGE IVP SCH ×2 (18:30→18:45)
--- NOTE | 2019-04-13 18:30 | NUR ---
DNR SIGNED PT DESATURATED AGAIN ON VENTILLATOR. INSPECTOR PRECISION BAGGING PT. DR CLARK MADE AWARE. BROTHER (DECISION MAKER) BROUGHT INTO ROOM AND WAS SHOWN THAT BLOOD WAS COMING OUT OF ET TUBE. AND TOLD THAT DR CLARK ORDERED MORE BLOOD PRODUCTS FOR PATIENT AND MORE MEDICATION TO TREAT PATIENT. BROTHER MADE DECISION TO MAKE PATIENT DNR AND NO LONGER WANTS ANY MORE BLOOD PRODUCTS GIVEN, NO MORE BAGGING PATIENT TO INCREASE SPO2, NO CPR, NO DIALYSIS, NO TUBE FEEDS. DR CLARK AGREED PT SURROGATE WISHES, AND ORDER FOR DNR PLACED
--- NOTE | 2019-04-13 20:00 | NUR ---
Dr Longoria here. Fully updated on patient status. Brother (decision maker )here. Requested patient no longer get fingersticks for glucometer. wishes honored. Emotional support given.
--- NOTE | 2019-04-13 20:21 | NUR ---
At this time as per family DNR did not want any interventions as far as the vent goes sats are low family aware and the doctor. Addendum: 04/13/19 at 2035 by ROSIE RIVERA RT Amended: Links added.
--- NOTE | 2019-04-13 20:52 | NUR ---
As per family not to do any more respt. interventions to stop ambu bagging and place back on vent with low sats. Addendum: 04/13/19 at 2052 by ROSIE RIVERA RT Amended: Links added.
[2019-04-14] VITALS (10 sets, daily range): BP systolic 0–124; BP diastolic 0–54
[2019-04-14] MEDS: IPRATROPIUM/ALBUTEROL SULFATE 3 ML SOLUTION IH SCH ×2 (01:52→06:48)
[2019-04-14] MEDS: ACETYLCYSTEINE 20% 200MG/ML 4ML VIAL IH SCH ×2 (01:52→06:50)
[2019-04-14] MEDS: GUAIFENESIN-DM 200/20 MG 10 ML PO SCH (02:41)
[2019-04-14] MEDS: AZITHROMYCIN 500MG+NS 250ML 250 ML IV SCH (03:27)
[2019-04-14] MEDS: FENTANYL 1000MCG+NS 100ML 100 ML IV PRN (03:32)
[2019-04-14] MEDS: OCTREOTIDE ACETATE 100 MCG/ML AMP SQ SCH (05:15)
[2019-04-14] MEDS: ALBUMIN (HUMAN) 5% 250 ML IV SCH (05:15)
[2019-04-14] MEDS: METHYLPREDNISOLONE SOD SUCC 40MG/ML 1ML IVP SCH (05:15)
[2019-04-14] MEDS: METOCLOPRAMIDE 10 MG/2 ML VIAL IVP SCH (05:26)
[2019-04-14] MEDS: MIDAZOLAM 50MG-0.9% NS 50ML 50 ML IV PRN (05:26)
[2019-04-14] MEDS: INSULIN HUMULIN R 100 UNIT/ML 3ML SQ SCH (05:27)
[2019-04-14 06:04] LABS: BASOPHILS % (AUTO) 0.2 % (0.0-5.0); EOSINOPHILS % (AUTO) 0.1 % (0.0-8.0); HEMATOCRIT 25.2 % (42-54); LYMPHOCYTES % (AUTO) 1.1 % (21.0-51.0); MEAN CORPUSCULAR HGB CONC 29.4 g/dL (32.0-36.0); NEUTROPHILS % (AUTO) 85.3 % (40.0-77.0); PLATELET COUNT (AUTO) 52 K/uL (130-400); RED CELL DISTRIBUTION WIDTH 18.2 % (11.0-15.5)
[2019-04-14 06:08] LABS: WHITE BLOOD COUNT (AUTO) 32.5 K/uL (4.8-10.8)
[2019-04-14 06:31] LABS: ALBUMIN 1.7 g/dL (3.5-5.0); BILIRUBIN,TOTAL 6.5 mg/dL (0.2-1.0); CREATININE 7.3 mg/dL (0.5-1.5); TOTAL PROTEIN, SERUM 5.5 g/dL (6.0-8.3)
[2019-04-14 06:33] LABS: POTASSIUM 6.3 mmol/L (3.5-5.1)
[2019-04-14] MEDS: SODIUM BICARB 8.4% 50ML SYRING 150 MEQ in DEXTROSE 5%-WATER 1,000 ML IV SCH (06:55)
[2019-04-14 07:40] LABS: BAND NEUTROPHILS % (MANUAL) 2 % (0-2); LYMPHOCYTES % (MANUAL) 4 % (22-44); METAMYELOCYTES % 1 % (0-0); MONOCYTES % (MANUAL) 2 % (2-9); SEGMENTED NEUTROPHILS % 91 % (40-70)
[2019-04-14 07:41] LABS: MAN.DIFF COMMENT-IMPRESSION MANUAL DIFFERENTIAL; PLATELET MORPHOLOGY COMMENT DECREASED
[2019-04-14 08:12] LABS: HEPATITIS Bs ANTIGEN SCREEN P Negative (Negative)
--- NOTE | 2019-04-14 08:58 | NUR ---
HR DROPPED TO 40'S AT THIS TIME. PT STILL ON ALL DRIPS, NO TITRATION MADE. ALL FAMILY ALLOWED TO COME IN TO THE ROOM TO BE WITH PATIENT.
[2019-04-14] MEDS: THIAMINE HCL 100 MG TABLET PO SCH (09:00)
[2019-04-14] MEDS ORDERED: PHYTONADIONE 10 MG/1 ML AMP IV SCH (09:00)
[2019-04-14] MEDS: FOLIC ACID/VITAMIN B COMP W-C 1 MG CAP/TAB PO SCH (09:49)
[2019-04-14] MEDS: PANTOPRAZOLE 40 MG/VIAL IVP SCH (09:49)
[2019-04-14] MEDS: LACTULOSE 20 GM/30 ML UDCUP PO SCH (09:49)
[2019-04-14] MEDS: MULTIVITAMIN TABLET PO SCH (09:49)
--- NOTE | 2019-04-14 10:01 | NUR ---
DIALYSIS TODAY PT RECEIVING DIALYSIS AT THIS TIME. TOLERATING WITHOUT INCIDENT Addendum: 04/14/19 at 1003 by SAM ROSS RN NONE ON WRONG PT
--- NOTE | 2019-04-14 10:05 | NUR ---
EMOTIONAL SUPPORT Sw met with brother Higinio, pt's mother and family who were at bedside. Sw present at time of and when Dr Longoria pronounced pt. Brother states they have made arrangements with [facility] this am. Nurse Schmitz informed of above.
--- NOTE | 2019-04-14 10:12 | NUR ---
at 0952 PT WITH FLATLINE HR, NO BP, NOT BREATHING OVER VENT, NO PULSE, DR MARIANO AND DR MCMAHON NOTIFIED OF CHANGE. DR MARIANO INFORMED. CAME IN AND PERFORMED PHYSICAL EXAM. PRONOUNCED AT 10:04 AM
== END 2019-04-14 10:04 | disposition expired | DRG 870 ==
LOC: EDH 22:07 → EDHIP 22:08 → 3CH 04-06 13:14 → 2AH 04-07 15:33 → 2CV 04-09 14:31 → 2BH 04-09 16:26
PROVIDERS: ADMIT Internal Medicine; ATTEND Internal Medicine
PROC: 5A09357 Assistance with Respiratory Ventilation, Less than 24 Consecutive Hours, Continuous Positive Airway Pressure (ICD-10-PCS; 2019-04-07)
PROC: 5A09357 Assistance with Respiratory Ventilation, Less than 24 Consecutive Hours, Continuous Positive Airway Pressure (ICD-10-PCS; 2019-04-08)
PROC: 5A1955Z Respiratory Ventilation, Greater than 96 Consecutive Hours (ICD-10-PCS; 2019-04-09)
PROC: 5A09357 Assistance with Respiratory Ventilation, Less than 24 Consecutive Hours, Continuous Positive Airway Pressure (ICD-10-PCS; 2019-04-09)
PROC: 0BH17EZ Insertion of Endotracheal Airway into Trachea, Via Natural or Artificial Opening (ICD-10-PCS; 2019-04-09)
PROC: 30233K1 Transfusion of Nonautologous Frozen Plasma into Peripheral Vein, Percutaneous Approach (ICD-10-PCS; 2019-04-13)
PROC: 02H633Z Insertion of Infusion Device into Right Atrium, Percutaneous Approach (ICD-10-PCS; principal; 2019-04-14)
PROC: 5A1D70Z Performance of Urinary Filtration, Intermittent, Less than 6 Hours Per Day (ICD-10-PCS; 2019-04-14)
DX: A41.9 Sepsis, unspecified organism (principal); J96.01 Acute respiratory failure with hypoxia; J18.9 Pneumonia, unspecified organism; J96.02 Acute respiratory failure with hypercapnia; R65.21 Severe sepsis with septic shock; N17.0 Acute kidney failure with tubular necrosis; N18.6 End stage renal disease; N30.00 Acute cystitis without hematuria; D68.9 Coagulation defect, unspecified; Z68.41 Body mass index [BMI] 40.0-44.9, adult; E87.2 Acidosis; I13.2 Hypertensive heart and chronic kidney disease with heart failure and with stage 5 chronic kidney disease, or end stage renal disease; K82.8 Other specified diseases of gallbladder; K70.31 Alcoholic cirrhosis of liver with ascites; D69.6 Thrombocytopenia, unspecified; Z66 Do not resuscitate; D64.9 Anemia, unspecified; D69.59 Other secondary thrombocytopenia; E66.9 Obesity, unspecified; E87.5 Hyperkalemia; F10.10 Alcohol abuse, uncomplicated; F12.10 Cannabis abuse, uncomplicated; F14.10 Cocaine abuse, uncomplicated; F17.210 Nicotine dependence, cigarettes, uncomplicated; F18.98 Inhalant use, unspecified with other inhalant-induced disorders; G83.9 Paralytic syndrome, unspecified; T36.8X5A Adverse effect of other systemic antibiotics, initial encounter; Z91.19 Patient's noncompliance with other medical treatment and regimen; Z99.2 Dependence on renal dialysis; Y92.89 Other specified places as the place of occurrence of the external cause
CPT/HCPCS: 31500; 36415; 36430; 36600; 71045; 71250; 74018; 74176; 76705; 76770; 80048; 80053; 80061; 80074; 80202; 80305; 81001; 82040; 82140; 82150; 82330; 82435; 82550; 82565; 82570; 82728; 82803; 82947; 82948; 83036; 83540; 83550; 83605; 83690; 83735; 83880; 83935; 84100; 84132; 84145; 84295; 84300; 84443; 84484; 84520; 84550; 85014; 85018; 85025; 85610; 85730; 86701; 86704; 86706; 86850; 86900; 86901; 86927; 87040; 87088; 87205; 87340; 87390; 87520; 87804; 90935; 93005; 93306; 94002; 94003; 94640; 94660; 94664; 94667; 94668; 94760; A4344; A4606; C1751; C1894; C9113; G0378; J0330; J0456; J0610; J0692; J0696; J1815; J1940; J1956; J2020; J2354; J2405; J2543; J2704; J2765; J2920; J3010; J3370; J3411; J3430; J3475; J3490; J7030; J7040; J7042; J7070; J7120; J7608; P9017; P9045